=== PATIENT | female | born 1970 | race Caucasian/White ===

== ENCOUNTER 2017-07-11 09:40 | Emergency (ER) | payer BC ==
[2017-07-11] MEDS ORDERED: 0.9 % SODIUM CHLORIDE 1,000 ML BAG IV ONE (10:47)
[2017-07-11] MEDS ORDERED: KETOROLAC 30 MG/ML VIAL IVP ONE (10:47)
[2017-07-11] MEDS ORDERED: ONDANSETRON HCL IV 4 MG/2 ML VIAL IV ONE (10:47)
[2017-07-11 11:09] LABS: URINE APPEARANCE CLEAR; URINE BILIRUBIN NEGATIVE (NEGATIVE); URINE BLOOD MODERATE (NEGATIVE); URINE COLOR YELLOW; URINE GLUCOSE (UA) NEGATIVE (NEGATIVE); URINE KETONE TRACE (NEGATIVE); URINE LEUKOCYTE ESTERASE NEGATIVE (NEGATIVE); URINE NITRITE NEGATIVE (NEGATIVE); URINE PROTEIN TRACE (NEGATIVE); URINE UROBILINOGEN 0.2 E.U./dL (0.20 - 1.00)
[2017-07-11 11:11] LABS: BASO % 0.2 % (0-6); EOS % 0.4 % (0-6); GRAN % 79.9 % (47-80); HEMATOCRIT 43.4 % (35.0-47.0); HEMOGLOBIN 14.3 gm/dl (11.6-16.0); LYMPH % 12.5 % (16-45); MEAN CELL VOLUME 92.1 fl (81-97); MEAN CORPUSCULAR HEMOGLOBIN 30.4 pg (27-33); MEAN CORPUSCULAR HGB CONC 32.9 g/dl (32-36); MEAN PLATELET VOLUME 11.1 fl (7.4-10.4); PLATELET COUNT 400 K/uL (130-400); RED BLOOD COUNT 4.71 M/uL (3.80-5.40); WHITE BLOOD COUNT W/O DIFF 18.1 K/uL (4.2-12.2)
[2017-07-11 11:13] LABS: URINE EPITHELIAL CELLS 0 - 2 (FEW); URINE RBC 21 - 35 (NONE SEEN); URINE WBC NONE SEEN (0-2/hpf)
[2017-07-11 11:22] LABS: ANION GAP 9.8 (7-16); BLOOD UREA NITROGEN 13 mg/dL (7-17); CARBON DIOXIDE 26.2 mmol/L (22-30); EST GLOMERULAR FILTRATION RATE > 60 ml/min; GLUCOSE,RANDOM 126 mg/dL (70-110)
--- NOTE | 2017-07-11 11:27 | Emergency Department Record ---
History of Present Illness - General Chief complaint: Flank Pain Stated complaint: FLANK PAIN Time Seen by Provider: 07/11/17 10:42 Source: Patient Mode of Arrival: Wheelchair Limitations: No limitations - History of Present Illness Initial comments: pt is having severe l flank pain w n/v. pt has a hx of kidney stones in april. she passed 5 of them in april. she has never seen a urologist. she is unable to urinate MD Complaint: Other Onset/Timin -: Days(s) Radiation: L flank Severity scale (1-10): 10 Quality: Sharp Consistency: Constant Improves with: None Worsens with: None Patient : No Associated Symptoms: Abdominal pain, Nausea/vomiting, Other - Related Data Sexually active: No Previous Rx's Medication Instructions Recorded Hydrocodone/Acetaminophen [[place] 1 each PO Q6HR #14 tablet 07/11/17 5-325 Tablet] Allergies Allergy/AdvReac Type Severity Reaction Status Date / Time erythromycin base Allergy NAUSEA AND Verified 07/11/17 09:48 VOMITING Travel Screening - Travel/Exposure Within Last 30 Days Have you traveled within the last 30 days?: No Review of Systems Reviewed: No additional complaints except as noted below Constitutional: Reports: As per HPI. Denies: Chills, Fever, Malaise, Night sweats, Weakness, Weight change Eyes: Reports: As per HPI. Denies: Eye discharge, Eye pain, Photophobia, Vision change ENT: Reports: As per HPI. Denies: Congestion, Dental pain, Ear pain, Epistaxis , Hearing loss, Throat pain Respiratory: Reports: As per HPI. Denies: Cough, Dyspnea, Hemoptysis, Stridor, Wheezes Cardiovascular: Reports: As per HPI. Denies: Arrhythmia, Chest pain, Dyspnea on exertion, Edema, Murmurs, Orthopnea, Palpitations, Paroxysmal nocturnal dyspnea, Rheumatic Fever, Syncope Endocrine: Reports: As per HPI. Denies: Fatigue, Heat or cold intolerance, Polydipsia, Polyuria Gastrointestinal: Reports: As per HPI. Denies: Abdominal pain, Constipation, Diarrhea, Hematemesis, Hematochezia, Melena, Nausea, Vomiting Genitourinary: Reports: As per HPI. Denies: Abnormal menses, Discharge, Dyspareunia, Dysuria, Frequency, Hematuria, Incontinence, Retention, Urgency Musculoskeletal: Reports: As per HPI. Denies: Arthralgia, Back pain, Gout, Joint swelling, Myalgia, Neck pain Skin: Reports: As per HPI. Denies: Bruising, Change in color, Change in hair/ nails, Lesions, Pruritus, Rash Neurological: Reports: As per HPI. Denies: Abnormal gait, Confusion, Headache, Numbness, Paresthesias, Seizure, Tingling, Tremors, Vertigo, Weakness Psychiatric: Reports: As per HPI. Denies: Anxiety, Auditory hallucinations, Depression, Homicidal thoughts, Suicidal thoughts, Visual hallucinations Hematological/Lymphatic: Reports: As per HPI. Denies: Anemia, Blood Clots, Easy bleeding, Easy bruising, Swollen glands Past Medical History - SOCIAL HISTORY Smoking Status: Current every day smoker Alcohol Use: None Drug Use: None - RESPIRATORY Hx Respiratory Disorders: No - CARDIOVASCULAR Hx Cardio Disorders: No - NEURO Hx Neuro Disorders: No - GI Hx GI Disorders: No - Hx Genitourinary Disorders: Yes Hx Kidney Stones: Yes - ENDOCRINE Hx Endocrine Disorders: No - MUSCULOSKELETAL Hx Musculoskeletal Disorders: No - PSYCH Hx Psych Problems: Yes Hx Anxiety: Yes - HEMATOLOGY/ONCOLOGY Hx Hematology/Oncology Disorders: No Family Medical History Any Significant Family History?: No Physical Exam - General General Appearance: Alert, Oriented x3, Cooperative, Moderate distress - Head Head exam: Normal inspection - Eye Eye exam: Normal appearance, PERRL, EOMI Pupils: Normal accommodation - ENT ENT exam: Normal exam, Mucous membranes moist, Normal external ear exam, Normal orophraynx, TM's normal bilaterally Ear exam: Normal external inspection. negative: External canal tenderness Nasal Exam: Normal inspection. negative: Discharge, Sinus tenderness Mouth exam: Normal external inspection, Tongue normal Teeth exam: Normal inspection. negative: Dental caries Throat exam: Normal inspection. negative: Tonsillar erythema, Tonsillar exudate - Neck Neck exam: Normal inspection, Full ROM. negative: Tenderness - Respiratory Respiratory exam: Normal lung sounds bilaterally. negative: Respiratory distress - Cardiovascular Cardiovascular Exam: Regular rate, Normal rhythm, Normal heart sounds - GI/Abdominal GI/Abdominal exam: Soft, Normal bowel sounds, Tenderness - Rectal Rectal exam: Deferred - exam: Deferred - Extremities Extremities exam: Normal inspection, Full ROM, Normal capillary refill. negative: Tenderness - Back Back exam: Reports: Normal inspection, Full ROM. Denies: Muscle spasm, Rash noted, Tenderness - Neurological Neurological exam: Alert, CN II-XII intact, Normal gait, Oriented X3 - Psychiatric Psychiatric exam: Normal affect, Normal mood - Skin Skin exam: Dry, Intact, Normal color, Warm Course - Reevaluation(s) Reevaluation #1: 07/11/17 12:03 pt feels better Medical Decision Making - Lab Data Result diagrams: 07/11/17 09:55 07/11/17 09:55 Lab Results 07/11/17 07/11/17 Range/Units 09:55 11:00 WBC 18.1 H (4.2-12.2) K/uL RBC 4.71 (3.80-5.40) M/uL Hgb 14.3 (11.6-16.0) gm/dl Hct 43.4 (35.0-47.0) % MCV 92.1 (81-97) fl MCH 30.4 (27-33) pg MCHC 32.9 (32-36) g/dl RDW 14.0 (11.5-14.5) % Plt Count 400 (130-400) K/uL MPV 11.1 H (7.4-10.4) fl Gran % 79.9 (47-80) % Lymphocytes % 12.5 L (16-45) % Monocytes % 7.0 (0-9) % Eosinophils % 0.4 (0-6) % Basophils % 0.2 (0-6) % Urine Color Yellow Urine Appearance Clear Urine pH 8.0 (5.0-8.0) Ur Specific [place] 1.015 (1.002-1.030) Urine Protein Trace H (NEGATIVE) Urine Glucose (UA) Negative (NEGATIVE) Urine Ketones Trace H (NEGATIVE) Urine Blood Moderate (NEGATIVE) Urine Nitrite Negative (NEGATIVE) Urine Bilirubin Negative (NEGATIVE) Urine Urobilinogen 0.2 (0.20 - 1.00) E.U./dL Ur Leukocyte Esterase Negative (NEGATIVE) Urine RBC 21 - 35 (NONE SEEN) Urine WBC None seen (0-2/hpf) Ur Epithelial Cells 0 - 2 (FEW) Disposition Disposition: Discharge Clinical Impression: Renal lithiasis Hydronephrosis Qualifiers: Hydronephrosis type: with ureteral calculous obstruction Qualified Code(s): N13.2 - Hydronephrosis with renal and ureteral calculous obstruction Disposition: Home, Self-Care Condition: (1) Good Instructions: Kidney Stones (ED), How to Strain Your Urine (ED) Additional Instructions: push fluids. follow up wednesday dr sky. return sooner if worse. Prescriptions: Hydrocodone/Acetaminophen [[place] 5-325 Tablet] 1 each PO Q6HR #14 tablet Referrals: ROBERT BROWN M.D. [MEDICAL DOCTOR] - [facility] Special[facility] [Provider Group] Forms: Patient Portal Access Quality - Quality Measures Quality Measures: N/A - Blood Pressure Screening Does Patient Have Any of the Following: No Blood Pressure Classification: Hypertensive Reading Systolic Measurement: 161 Diastolic Measurement: 92 Screening for High Blood Pressure: < First Hypertensive BP, F/U Documented > [ G8950] First Hypertensive Follow-up Interventions: Follow-up with rescreen GT 1 day and LT 4 weeks.
--- NOTE | 2017-07-12 00:33 | CT SCAN REPORT ---
EXAM: CT SCAN ABDOMEN/PELVIS WO CONTRAST HISTORY: ACUTE LEFT UPPER QUADRANT FLANK PAIN. COMPARISON: None. TECHNIQUE: Contiguous axial images from the lung bases through the symphysis pubis were obtained without IV contrast. FINDINGS: The lung bases are clear. The liver, spleen, adrenals, and pancreas are normal. The gallbladder is absent. Mild left hydronephrosis with partially obstructing 3 mm calculus in the proximal third of the left ureter. Normal right kidney. Visualized loops of small and large bowel are of normal caliber. Normal appendix. No free intraperitoneal fluid or adenopathy. The uterus is absent. No lytic or blastic lesion. IMPRESSION: 1. MILD LEFT HYDRONEPHROSIS WITH PARTIALLY OBSTRUCTING 3 MM CALCULUS WITHIN THE PROXIMAL THIRD OF THE LEFT URETER. 2. NORMAL APPENDIX. JOB NUMBER: [id number] MTDD
== END 2017-07-11 12:35 | disposition home or self-care (01) ==
LOC: ER 09:40
DX: N13.2 Hydronephrosis with renal and ureteral calculous obstruction (principal)
CPT/HCPCS: 99284 ×2; 96374; 96375; 85025; 80048; 81001; 74176; J1885; J2405; J7030

== ENCOUNTER 2018-02-08 16:48 | Emergency (ER) | payer BC ==
[2018-02-08] MEDS ORDERED: SODIUM CHLORIDE 0.9% 500 ML IV ONE (17:01)
[2018-02-08] MEDS ORDERED: MORPHINE SULFATE 5 MG/ML PFS IVP ONE (17:01)
[2018-02-08] MEDS ORDERED: ONDANSETRON HCL IV 4 MG/2 ML VIAL IV ONE (17:01)
--- NOTE | 2018-02-08 17:02 | Emergency Department Record ---
History of Present Illness - General Chief complaint: Flank Pain Stated complaint: THINK IT'S A KIDNEY STONE Time Seen by Provider: 02/08/18 17:00 Source: Patient Mode of Arrival: Ambulatory Limitations: No limitations - History of Present Illness Initial comments: The patient is here due to the acute onset of L flank pain about 5 hours ago. The pain is sharp and severe and non-radiating. She does have mild nausea but no vomiting. The patient has had a [place] similar to this in the past and this feels like another episode. MD Complaint: Other Onset/Timin -: Hour(s) Radiation: L flank Severity: Moderate Severity scale (1-10): 10 Quality: Aching Consistency: Constant Improves with: None Patient : No - Related Data Previous Rx's Medication Instructions Recorded Hydrocodone/Acetaminophen [[place] 1 - 2 each PO .EVERY 4-6 HRS PRN 02/08/18 5-325 Tablet] #12 tablet Allergies Allergy/AdvReac Type Severity Reaction Status Date / Time erythromycin base Allergy NAUSEA AND Verified 02/08/18 16:58 VOMITING Travel Screening - Travel/Exposure Within Last 30 Days Have you traveled within the last 30 days?: No - Travel/Exposure Within Last Year Have you traveled outside the [place] in the last year?: No - Additonal Travel Details Have you been exposed to anyone with a communicable illness?: No - Travel Symptoms Symptom Screening: None Review of Systems Constitutional: Denies: Chills, Fever Eyes: Denies: Eye discharge ENT: Denies: Congestion Respiratory: Denies: Cough, Dyspnea Past Medical History - SOCIAL HISTORY Smoking Status: Current every day smoker Alcohol Use: None Drug Use: None - RESPIRATORY Hx Respiratory Disorders: No - CARDIOVASCULAR Hx Cardio Disorders: No - NEURO Hx Neuro Disorders: No - GI Hx GI Disorders: No - Hx Genitourinary Disorders: Yes Hx Kidney Stones: Yes - ENDOCRINE Hx Endocrine Disorders: No - MUSCULOSKELETAL Hx Musculoskeletal Disorders: No - PSYCH Hx Psych Problems: Yes Hx Anxiety: Yes - HEMATOLOGY/ONCOLOGY Hx Hematology/Oncology Disorders: No Family Medical History Any Significant Family History?: Yes Physical Exam - General General Appearance: Alert, Oriented x3, Cooperative, Mild distress (due to flank pain.) - Head Head exam: Atraumatic, Normocephalic, Normal inspection - Eye Eye exam: Normal appearance, PERRL - ENT Throat exam: Normal inspection. negative: Tonsillar erythema, Tonsillar exudate - Neck Neck exam: Normal inspection, Full ROM. negative: Tenderness - Respiratory Respiratory exam: Normal lung sounds bilaterally. negative: Respiratory distress - Cardiovascular Cardiovascular Exam: Regular rate, Normal rhythm, Normal heart sounds - GI/Abdominal GI/Abdominal exam: Soft, Normal bowel sounds. negative: Tenderness - Extremities Extremities exam: Normal inspection, Full ROM, Normal capillary refill. negative: Tenderness Course Vital Signs 02/08/18 16:53 Temperature 97.4 F L Pulse Rate 78 Respiratory 24 Rate Blood Pressure 170/103 Pulse Ox 100 - Reevaluation(s) Reevaluation #1: The patient is doing a lot better at this time. Her pain is very minimal and she is resting comfortably. 02/08/18 17:57 Reevaluation #2: The patient still is doing very well and denies any pain or discomfort. I did discuss the case with Dr. Gomes and he does agree to the plan for discharge and would like to see her in the Specialty Clinic next week. 02/08/18 18:21 Reevaluation #3: The patient is doing VERY WELL at this time. Her pain is still 100% resolved. I have to believe due to the fact her pain level went from a 125 on a scale of 1 - 10 to 0 now she must have passed the stone. She is to catch it at home and see Dr. Sun in the Specialty clinic next week. 02/08/18 18:37 Medical Decision Making - Data Complexity MDM Data: Labs Ordered and/or Reviewed, X-Ray Ordered and/or Reviewed - Lab Data Result diagrams: 02/08/18 17:05 02/08/18 17:05 - Radiology Data Radiology results: Report reviewed (CT: 8x7 mm stone L UVJ with mild hydro.) Disposition Disposition: Discharge Clinical Impression: Ureteral stone with hydronephrosis Disposition: Home, Self-Care Condition: (2) Stable Instructions: Flank Pain (ED) Additional Instructions: Please drink plenty of fluids and take the [place] if needed. Please return to the ER for any worsening pain, nausea, or ANY fever. Please see Dr. Gomes in the Specialty clinic next week as planned. Prescriptions: Hydrocodone/Acetaminophen [[place] 5-325 Tablet] 1 - 2 each PO .EVERY 4-6 HRS PRN #12 tablet PRN Reason: Pain Referrals: [facility] Special[facility] [Provider Group] Forms: Patient Portal Access Time of Disposition: 18:40 Quality - Quality Measures Quality Measures: N/A - Blood Pressure Screening View Details: Yes Does Patient Have Any of the Following: No Blood Pressure Classification: Pre-Hypertensive BP Reading Systolic Measurement: 135 Diastolic Measurement: 76 Screening for High Blood Pressure: < Pre-Hypertensive BP, F/U Documented > [ G8950] Pre-Hypertensive Follow-up Interventions: Referral to alternative/primary care provider.
[2018-02-08 17:12] LABS: BASO % 0.2 % (0-6); EOS % 0.6 % (0-6); GRAN % 76.4 % (47-80); HEMATOCRIT 43.4 % (35.0-47.0); HEMOGLOBIN 14.2 gm/dl (11.6-16.0); MEAN CELL VOLUME 93.7 fl (81-97); MEAN CORPUSCULAR HEMOGLOBIN 30.7 pg (27-33); MEAN CORPUSCULAR HGB CONC 32.7 g/dl (32-36); MEAN PLATELET VOLUME 10.4 fl (7.4-10.4); MONO % 7.8 % (0-9); PLATELET COUNT 376 K/uL (130-400); RED BLOOD COUNT 4.63 M/uL (3.80-5.40); RED CELL DISTRIBUTION WIDTH 14.1 % (11.5-14.5); WHITE BLOOD COUNT W/O DIFF 17.1 K/uL (4.2-12.2)
[2018-02-08 17:15] LABS: URINE APPEARANCE CLEAR; URINE BILIRUBIN NEGATIVE (NEGATIVE); URINE BLOOD LARGE (NEGATIVE); URINE COLOR YELLOW; URINE GLUCOSE (UA) NEGATIVE (NEGATIVE); URINE KETONE TRACE (NEGATIVE); URINE LEUKOCYTE ESTERASE TRACE (NEGATIVE); URINE NITRITE NEGATIVE (NEGATIVE); URINE UROBILINOGEN 0.2 E.U./dL (0.20 - 1.00)
[2018-02-08] MEDS ORDERED: KETOROLAC 30 MG/ML VIAL IVP ONE (17:15)
[2018-02-08 17:18] LABS: URINE WBC 0 - 2 (0-2/hpf)
[2018-02-08 17:22] LABS: BLOOD UREA NITROGEN 12 mg/dL (6-20); CREATININE 0.7 mg/dL (0.5-0.9); EST GLOMERULAR FILTRATION RATE > 60 mL/min
[2018-02-08 17:25] LABS: GLUCOSE,RANDOM 126 mg/dL (74-109)
--- NOTE | 2018-02-10 08:22 | CT SCAN REPORT ---
EXAM: CT OF THE ABDOMEN AND PELVIS WITHOUT IV CONTRAST HISTORY: THINK IT'S A KIDNEY STONE. TECHNIQUE: Helical CT scan of the abdomen and pelvis was obtained without intravenous contrast. No oral contrast administered. Comparison: CT of the abdomen and pelvis without contrast 07/11/17, 3 mm calculus in the proximal left ureter. FINDINGS: The lung bases are clear. Moderate left hydronephrosis, similar to previous exam. The left ureter is moderately dilated. At the left ureterovesical junction, an irregular shaped calculus measures approximately 8 x 7 mm. No additional calculi are seen in the left kidney. No calculi in the right kidney or right hydronephrosis. The liver is moderately enlarged, 26 cm in length, similar to previous exam. There is limited evaluation of the solid organs without intravenous contrast. The adrenal glands have normal morphology. The small and large bowel have normal caliber. The appendix is normal. No extraluminal gas or fluid. Mild degenerative changes of the spine. IMPRESSION: 1. 7 X 8 MM CALCULUS AT THE LEFT URETEROVESICAL JUNCTION CAUSING MODERATE OBSTRUCTIVE UROPATHY. THERE IS NO INTERVAL SCAN SINCE THE 07/11/17 SCAN, SO I AM UNCERTAIN WHETHER THIS IS THE SAME, BUT ENLARGING CHRONIC CALCULUS, OR A NEW CALCULUS. 2. MODERATELY ENLARGED LIVER. JOB NUMBER: [id number] [facility]
== END 2018-02-08 18:53 | disposition home or self-care (01) ==
LOC: ER 16:48
DX: N13.2 Hydronephrosis with renal and ureteral calculous obstruction (principal); R11.0 Nausea; F17.210 Nicotine dependence, cigarettes, uncomplicated; Z87.442 Personal history of urinary calculi
CPT/HCPCS: 99284 ×2; 96374; 96375; 96361; 85025; 80048; 81001; 74176; J1885; J2405; J2270